=== PATIENT | female | born 1975 | race Caucasian/White ===

== ENCOUNTER 2023-05-06 08:28 | Outpatient (CLI) | payer OTHER, SELFPAY | END 2023-05-06 08:29 | disposition home or self-care (01) | PROVIDERS: Visit Provider Physician Assistant Medical | DX: Z00.00 Encounter for general adult medical examination without abnormal findings (principal); Z13.29 Encounter for screening for other suspected endocrine disorder; Z13.6 Encounter for screening for cardiovascular disorders | CPT/HCPCS: 80053; 80061; 84443 ==

== ENCOUNTER 2023-08-15 10:28 | Outpatient (CLI) | payer OTHER, SELFPAY ==
--- NOTE | 2023-08-15 11:42 | W.ANESCHARGE ---
Anesthesia Charges Start Date/Time Anesthesia Start Date: 08/15/23 Anesthesia Start Time: 11:17 Stop Date/Time Anesthesia Stop Date: 08/15/23 Anesthesia Stop Time: 11:42
--- NOTE | 2023-08-15 13:07 | W.ANESCHARGE ---
Anesthesia Charges Start Date/Time Anesthesia Start Date: 08/15/23 Anesthesia Start Time: 11:17 Stop Date/Time Anesthesia Stop Date: 08/15/23 Anesthesia Stop Time: 11:42
== END 2023-08-15 10:29 | disposition home or self-care (01) ==
LOC: OP CLINIC 10:28
PROVIDERS: PCP Physician Assistant Medical; Visit Provider Internal Medicine
DX: Z12.11 Encounter for screening for malignant neoplasm of colon (principal); K63.5 Polyp of colon
CPT/HCPCS: 00811; 45385; 88305; J2704